=== PATIENT | female | born 1990 | race Caucasian/White ===

== ENCOUNTER 2017-11-24 20:49 | Emergency (ER) | payer BC ==
[~2017-11-24] VITALS: Ht 162.6 cm; Wt 89.6 kg
[~2017-11-24 20:49] MED LIST: CIPRO500 MG PO; FLOMAX0.4 MG PO; OXAYDO5 MG PO; ZOFRAN8 MG PO
[2017-11-24 21:36] LABS: HEMATOCRIT 38.9 % (36.0-46.0); HEMOGLOBIN 13.3 G/DL (11.9-15.5); MCH 28.9 PG (29.0-34.0); MCHC 34.2 G/DL (30.0-36.0); MCV 84.6 FL (83-99); PLATELET COUNT 292 K/uL (156-360); RBC DIS.WIDTH-CV 13.2 % (11.8-14.6); RBC DIS.WIDTH-SD 40.8 % (39-53); WHITE BLOOD COUNT 4.9 K/uL (4.1-10.2)
[2017-11-24 21:56] LABS: CHLORIDE 106 mEq/L (99-109); POTASSIUM 3.5 mEq/L (3.7-5.4); SODIUM 140 mEq/L (136-147)
[2017-11-24 21:58] LABS: GLUCOSE 103 mg/dL (70-99); TOTAL PROTEIN 7.7 g/dL (6.4-8.3)
[2017-11-24 22:00] LABS: TOTAL BILIRUBIN 0.2 mg/dL (0.0-1.0)
[2017-11-24 22:02] LABS: ALKALINE PHOSPHATASE 108 IU/L (3-129); CREATININE 0.8 mg/dL (0.6-1.3); GFR ESTIMATE (CALCULATED) > 59 mL/min/
[2017-11-24 22:03] LABS: UREA NITROGEN (BUN) 8 mg/dL (9-23)
[2017-11-24 22:04] LABS: AST (GOT) 22 IU/L (2-34)
[2017-11-24 22:05] LABS: ALT (GPT) 16 IU/L (3-49)
[2017-11-24 22:13] LABS: QUANTITATIVE HCG < 4.0 MIU/ML
[2017-11-25 00:22] LABS: APPEARANCE CLEAR ((CLEAR)); BILIRUBIN NEGATIVE; BLOOD MODERATE; COLOR COLORLESS ((YELLOW)); GLUCOSE (STRIP) NEGATIVE; KETONES NEGATIVE; LEUKOCYTES NEGATIVE; NITRITE NEGATIVE; PROTEIN (STRIP) NEGATIVE; SPECIFIC GRAVITY 1.004 (1.000-1.030); UROBILINOGEN 0.2 MG/DL (0.2-1.0)
[2017-11-25 00:26] LABS: BACTERIA NONE SEEN /HPF; EPITHELIAL CELLS RARE /HPF; MUCUS NONE SEEN /LPF; RED BLOOD CELLS 0-5 /HPF (0-5); UCUL ADDED? NO; WHITE BLOOD CELLS 0-5 /HPF (0-5)
[2017-11-25] MEDS ORDERED: CIPRO500 MG PO (01:09)
[2017-11-25 01:20] LABS: C DIFF TOXIN NEGATIVE (NEGATIVE)
[2017-11-25 01:49] VITALS: BP 127/86
== END 2017-11-25 01:50 | disposition home or self-care (01) ==
LOC: EME 20:49
PROVIDERS: Physician Assistant
DX: R19.7 Diarrhea, unspecified (principal); Z87.442 Personal history of urinary calculi; Z88.0 Allergy status to penicillin
CPT/HCPCS: 80053; 81003; 83630; 84702; 85027; 87177; 87493; 99281; 99285; J7030